=== PATIENT | female | born 1985 ===

== ENCOUNTER 2017-06-18 23:23 | Emergency (ER) | payer SELFPAY ==
[2017-06-18 23:47] VITALS: BP 141/85; PULSE 99; RESP 18; TEMP 97.8; O2SAT 100
--- NOTE | 2017-06-18 23:55 | ED PDOC ---
HPI: General Adult Time Seen by Provider: 06/18/17 23:45 Chief Complaint (Nursing): Palpitations Chief Complaint (Provider): Insomnia History Per: Patient History/Exam Limitations: no limitations Onset/Duration Of Symptoms: Persistent (x1 month) Additional Complaint(s): Felicia Tubbs is a 32 year old female with a history of anxiety that presents to the ED with a chief complaint of increasing difficulty sleeping that she has been experiencing for the past month. Patient reports that she presents to the ED today because she began to experiencing palpitations around 10:30 PM. She denies any chest pain, shortness of breath, suicidal ideation, or homicidal ideation. Of Note: Patient states that she has been experiencing a lot of stress at home. Past Medical History Reviewed: Historical Data, Nursing Documentation, Vital Signs Vital Signs: Last Vital Signs Temp 97.8 F 06/18/17 23:44 Pulse 99 H 06/18/17 23:44 Resp 18 06/18/17 23:44 BP 141/85 06/18/17 23:44 Pulse Ox 100 06/18/17 23:57 - Medical History PMH: Anxiety - Family History Family History: States: Unknown Family Hx - Allergies Allergies/Adverse Reactions: Allergies Allergy/AdvReac Type Severity Reaction Status Date / Time acetaminophen [From Tylenol] Allergy RASH Verified 06/18/17 23:44 Review of Systems Constitutional: Positive for: Other (insomnia) Cardiovascular: Positive for: Palpitations Psych: Positive for: Anxiety Physical Exam - Reviewed Nursing Documentation Reviewed: Yes Vital Signs Reviewed: Yes - Physical Exam Appears: Positive for: Non-toxic, No Acute Distress Head Exam: Positive for: ATRAUMATIC, NORMOCEPHALIC Skin: Positive for: Normal Color, Warm Eye Exam: Positive for: Conjunctival injection. Negative for: Normal appearance Cardiovascular/Chest: Positive for: Regular Rate, Rhythm. Negative for: Murmur Respiratory: Positive for: Normal Breath Sounds. Negative for: Wheezing Neurologic/Psych: Positive for: Alert, Oriented, Mood/Affect (depressed affect) . Negative for: Motor/Sensory Deficits - ECG O2 Sat by Pulse Oximetry: 100 (RA) Pulse Ox Interpretation: Normal Medical Decision Making Medical Decision Making: Impression: Anxiety/Insomnia Plan: * Urine * Xanax 1 mg PO * Reevaluation 0000: Pt feeling better, will d/c home. Given referral for [facility] clinic. Scribe Attestation: Documented by Marilyn Archuleta, acting as a scribe for Maximilian Sullivan MD. Provider Scribe Attestation: All medical record entries made by the Scribe were at my direction and personally dictated by me. I have reviewed the chart and agree that the record accurately reflects my personal performance of the history, physical exam, medical decision making, and the department course for this patient. I have also personally directed, reviewed, and agree with the discharge instructions and disposition. Disposition - Clinical Impression Clinical Impression: Palpitations, Anxiety - Disposition Referrals: [facility] [Outside] Disposition: Routine/Home Disposition Time: 00:00 Condition: STABLE Instructions: Anxiety (ED) Forms: [employer] (Yakut) Print Language: GERMAN
== END 2017-06-19 00:56 | disposition home or self-care (01) ==
LOC: H.ER 23:23
DX: R00.2 Palpitations (principal); F41.9 Anxiety disorder, unspecified; G47.00 Insomnia, unspecified

== ENCOUNTER 2018-06-15 15:30 | Emergency (ER) | payer SELFPAY ==
[2018-06-15 15:30] VITALS: BMI 28.7
[2018-06-15 15:43] VITALS: O2SAT 100
[2018-06-15] MEDS ORDERED: Sodium Chloride 0.9% 1,000 ML IV STA (16:48)
--- NOTE | 2018-06-15 16:52 | ED PDOC ---
HPI: Female Pain Time Seen by Provider: 06/15/18 15:55 Chief Complaint (Nursing): Female Genitourinary Chief Complaint (Provider): Pevlic cramping History Per: Patient History/Exam Limitations: no limitations Onset/Duration Of Symptoms: Days Current Symptoms Are (Timing): Still Present Additional Complaint(s): 33 yo female with no medical problems presents for evaluation of pevlic pain since yesterday. Pt states she did not have her menses for 25 days (5 days late ) and took a test y2 days ago but it was negative. Pt states she began bleeding yesterday a little and more today. Pt did not take anything for pain. Past Medical History Reviewed: Historical Data, Nursing Documentation, Vital Signs Vital Signs: Last Vital Signs Temp 98.4 F 06/15/18 15:40 Pulse 90 06/15/18 15:40 Resp 16 06/15/18 15:40 BP 127/87 06/15/18 15:40 Pulse Ox 100 06/15/18 15:40 - Medical History PMH: Anxiety - Surgical History Surgical History: No Surg Hx - Family History Family History: States: Unknown Family Hx - Living Arrangements Living Arrangements: With Family - Social History Current smoker - smoking cessation education provided: No - Home Medications Home Medications: Ambulatory Orders Medication Instructions Recorded Ciprofloxacin [Cipro] 500 mg PO BID #10 tab 06/15/18 - Allergies Allergies/Adverse Reactions: Allergies Allergy/AdvReac Type Severity Reaction Status Date / Time acetaminophen [From Tylenol] Allergy RASH Verified 02/27/18 10:02 Review of Systems ROS Statement: Except As Marked, All Systems Reviewed And Found Negative Constitutional: Negative for: Fever, Chills Gastrointestinal: Positive for: Abdominal Pain. Negative for: Nausea, Vomiting , Diarrhea Genitourinary Female: Positive for: Vaginal Bleeding, Pelvic Pain. Negative for : Vaginal Discharge Physical Exam - Reviewed Nursing Documentation Reviewed: Yes Vital Signs Reviewed: Yes - Physical Exam Appears: Positive for: Well, Non-toxic, No Acute Distress Head Exam: Positive for: ATRAUMATIC, NORMAL INSPECTION, NORMOCEPHALIC Skin: Positive for: Normal Color, Warm, DRY Eye Exam: Positive for: Normal appearance ENT: Positive for: Normal ENT Inspection Neck: Positive for: Normal, Painless ROM Cardiovascular/Chest: Positive for: Regular Rate, Rhythm Respiratory: Positive for: Normal Breath Sounds. Negative for: Accessory Muscle Use, Respiratory Distress Gastrointestinal/Abdominal: Positive for: Normal Exam, Soft, Tenderness ( Suprapubic ) Back: Positive for: Normal Inspection Extremity: Positive for: Normal ROM Neurologic/Psych: Positive for: Alert, Oriented - Laboratory Results Result Diagrams: 06/15/18 17:10 06/15/18 17:10 - ECG O2 Sat by Pulse Oximetry: 100 Medical Decision Making Medical Decision Making: Preg (-) (+) nitrites and leuks in dip Labs and toradol ordered. CBC, cmp - Normal IV antibiotics in ER. Disposition - Clinical Impression Clinical Impression: UTI (urinary tract infection) - Patient ED Disposition Is Patient to be Admitted: No Counseled Patient/Family Regarding: Diagnosis, Need For Followup, Rx Given - Disposition Referrals: [facility] [Outside] Disposition: Routine/Home Disposition Time: 20:14 Condition: GOOD Prescriptions: Ciprofloxacin [Cipro] 500 mg PO BID #10 tab Instructions: Urinary Tract Infection, Adult (DC) Forms: [employer] (New Zealander) Print Language: NAMIBIAN
[2018-06-15 17:37] LABS: BASO % 0.4 % (0.0-2.0); HEMOGLOBIN 12.4 g/dL (12.0-16.0); LYMPH # 1.4 K/uL (1.0-4.3); LYMPH % 14.6 % (20.0-40.0); MEAN CELL VOLUME 83.4 fl (81.0-99.0); MEAN CORPUSCULAR HEMOGLOBIN 27.6 pg (27.0-31.0); MEAN CORPUSCULAR HGB CONC 33.1 g/dL (33.0-37.0); MEAN PLATELET VOLUME 7.6 fl (7.2-11.7); MONO # 0.3 K/uL (0.0-0.8); MONO % 2.8 % (0.0-10.0); NEUT # 7.6 K/uL (1.8-7.0); NEUT % 82.2 % (50.0-75.0); RBC 4.51 Mil/uL (3.80-5.20); WHITE BLOOD COUNT 9.3 K/uL (4.8-10.8)
[2018-06-15 17:44] LABS: SQUAMOUS EPITHIAL 17 /hpf (0-5); URINE BACTERIA OCC (<OCC); URINE BILIRUBIN NEGATIVE (NEGATIVE); URINE BLOOD LARGE (NEGATIVE); URINE CLARITY TURBID (Clear); URINE COLOR RED (YELLOW); URINE GLUCOSE (UA) NEG (Normal); URINE PROTEIN 100 mg/dL (NEGATIVE); URINE UROBILINOGEN 0.2-1.0 mg/dL (0.2-1.0)
[2018-06-15 17:45] LABS: URINE LEUKOCYTE ESTERASE MODERATE Leu/uL (Negative)
[2018-06-15 17:47] LABS: ALB/GLOB RATIO 1.3 (1.0-2.1); ALBUMIN 4.2 g/dL (3.5-5.0); ALT/SGPT 34 U/L (9-52); AST/SGOT 28 U/L (14-36); BLOOD UREA NITROGEN 8 mg/dl (7-17); CALCIUM 9.1 mg/dL (8.4-10.2); GFR AFRICAN-AMERICAN > 60; GFR NON-AFRICAN AMERICAN > 60
[2018-06-15] MEDS ORDERED: cefTRIAXone (Rocephin) 1 gm Inj ONE (20:17)
[2018-06-15 22:16] VITALS: BP 111/66; PULSE 68; RESP 18; TEMP 98.3
== END 2018-06-15 22:18 | disposition home or self-care (01) ==
LOC: H.ER 15:30
DX: N39.0 Urinary tract infection, site not specified (principal); F41.9 Anxiety disorder, unspecified
CPT/HCPCS: 80053; 81003; 81025; 85025; 87086; 87206; 96361; 96374; 96375; 99284; J0696; J1885; J7030